=== PATIENT | female | born 1960 | race Caucasian/White ===

== ENCOUNTER 2018-09-17 11:34 | Emergency (ER) | payer OTHER ==
--- NOTE | 2018-09-17 11:40 | ED Physician Documentation ---
General Adult - HISTORIAN Historian: patient - HPI Stated Complaint: blood pressure concerns and weakness Chief Complaint: Weakness Onset: days ago (3) Timing: still present Severity: mild Further Comments: yes (She reports about three days ago she started to feel her b/p was going up and down. She has had some weakness, dizziness with laying, nausea with the dizziness - she had a med change one month ago (she did see her psychatrist this week but she has not changed meds as ordered yet) She reports the nausea is after the dizziness. Denies any injury. She doesnt feel dizzy all the time just with laying. she feels that she has not been eating and drinking as well as normal due to not feeling well.) Last known Well Code/Unknown Code: Unknown - ROS CONST: no problems EYES/ENT: none CVS/RESP: none GI/: nausea MS/SKIN/LYMPH: denies: rash NEURO/PSYCH: dizziness. denies: headache, fainting, difficulty walking, difficulty with speech - PAST HX Past History: hypertension, other (depression ) Surgeries/Procedures: cholecystectomy, hysterectomy Immunizations: UTD Allergies/Adverse Reactions: Allergies Allergy/AdvReac Type Severity Reaction Status Date / Time amoxicillin trihydrate Allergy Unknown Verified 09/17/18 13:14 Iodinated Contrast- Oral and Allergy Verified 09/17/18 13:14 IV Dye isoniazid Allergy Verified 09/17/18 13:14 Latex, Natural Rubber Allergy Verified 09/17/18 13:14 Home Medications: Ambulatory Orders Medication Instructions Recorded Atenolol [Tenormin] 25 mg PO BID 12/20/12 Celecoxib [Celebrex] 200 mg PO HS 12/20/12 Citalopram Hydrobromide [Celexa] 40 mg PO DAILY 12/20/12 Estrogens, Conjugated [Premarin] 0.9 mg PO DAILY 12/20/12 Lamotrigine [Lamictal] 200 mg PO HS 12/20/12 Metformin HCl [Glucophage] 500 mg PO BID 12/20/12 Simvastatin 40 mg PO HS 12/20/12 - SOCIAL HX Smoking History: non-smoker Alcohol Use: none Drug Use: marijuana - FAMILY HX Family History: No - REVIEWED ASSESSMENTS Nursing Assessment Reviewed: Yes Vitals Reviewed: Yes Progress - Progress Progress: 1310: reports she is feeling "much better" - no further nausea. DG 1314: she reports a mild headache DG 1348: headache has improved. Results and plan discussed she is agreeable DG General Adult Physical Exam - PHYSICAL EXAM GENERAL APPEARANCE: no distress EENT: eye inspection normal, ENT inspection normal, pharynx normal, dry mucous membranes NECK: normal inspection RESPIRATORY: no resp distress, chest non-tender, breath sounds normal CVS: reg rate & rhythm, heart sounds normal, equal pulses ABDOMEN: soft, normal bowel sounds, no distension BACK: normal inspection, no CVA tenderness SKIN: warm/dry, normal color EXTREMITIES: non-tender, normal range of motion, no evidence of injury, no edema NEURO: oriented X3, CN's nml as tested, motor nml, sensation nml, mood/affect nml, cognition normal Discharge Clincal Impression: UTI (urinary tract infection) Qualifiers: Urinary tract infection type: site unspecified Hematuria presence: without hematuria Qualified Code(s): N39.0 - Urinary tract infection, site not specified Referrals: Mirella Yarbrough MD [Primary Care Provider] - 2 Days Comments: 1. Bactrim DS take 1 by mouth every 12 hours x 10 days 2. Zofran 4 mg take 1 by mouth every 8 hours as needed for nausea 3. Increase fluid 4. Change position slowly 5. See PCP in 2-4 days 6. Return to ER for any concerns Condition: Stable Disposition: 01 HOME, SELF-CARE Decision to Admit: NO Date of Decison to Admit: 09/17/18 Decision Time: 13:53
[2018-09-17] MEDS: 0.9 % SODIUM CHLORIDE 1,000 ML IV ONE ×2 (12:33→13:14)
[2018-09-17] MEDS: ONDANSETRON HCL/PF 4 MG/ 2ML VIAL IVP ONE (12:34)
[2018-09-17 12:45] LABS: BASOPHILS % 0.5 (0.0-1.5); EOSINOPHILS % 0.6 % (0.0-6.8); MEAN CORPUSCULAR HEMOGLOBIN 29.7 pg (28.0-34.0); MONOCYTES % 5.2 % (0.0-11.0); NEUTROPHILS # 5.2 # k/uL (1.4-7.7)
[2018-09-17 12:51] LABS: eGFR (Non-African) > 60
[2018-09-17 12:55] LABS: APPEARANCE,URINE CLOUDY (CLEAR); COLOR,URINE AMBER (YELLOW); OCCULT BLOOD,URINE NEGATIVE (NEGATIVE); PH URINE 5.5 (5.0 - 8.0); UROBILINOGEN URINE 0.2 Eu (0.2-1.0)
[2018-09-17 12:58] LABS: CANNABINOIDS NON NEGATIVE ng/mL (< 50); METHYLENEDIOXYMETHAMPHETAMINE NEGATIVE ng/mL (<500)
[2018-09-17] MEDS: KETOROLAC TROMETHAMINE 30 MG/1ML VIAL IVP ONE (13:20)
[2018-09-17 14:10] VITALS: BP 109/79
[2018-09-21 19:21] LABS: CANNABINOIDS CONFIRMATION >150 ng/mL (<15)
== END 2018-09-17 14:06 | disposition home or self-care (01) ==
LOC: ED 11:34
DX: N39.0 Urinary tract infection, site not specified (principal); I10 Essential (primary) hypertension; F12.90 Cannabis use, unspecified, uncomplicated
CPT/HCPCS: 80053; 80377; 81002; 85025; 93005; 99282; 99283; J1885; J2405; J7030; 36415; 96365; 96375; G0481; S1016